=== PATIENT | female | born 1950 | race American Indian/Alaskan Native ===

== ENCOUNTER 2016-09-14 20:42 | Emergency (ER) | payer MEDICARE ==
[2016-09-14 21:22] VITALS: BP 149/88
[2016-09-14 22:18] LABS: Basophils % (Auto) 0.7 % (0.0-1.8); Eosinophils % (Auto) 0.7 % (0.0-4.3); Hematocrit 31.3 % (30.3-42.9); Hemoglobin 10.6 gm/dl (10.1-14.3); Mean Corpuscular HGB Conc 34 % (30-34); Mean Corpuscular Hemoglobin 31 pg (28-32); Mean Corpuscular Volume 92 fl (79-97); Platelet Count 225 K/mm3 (140-440); Red Blood Count 3.42 M/mm3 (3.65-5.03); Red Cell Distribution Width 15.8 % (13.2-15.2); White Blood Count 5.5 K/mm3 (4.5-11.0)
[2016-09-14 22:34] LABS: Anion Gap 17 mmol/L; BUN/Creatinine Ratio 21.05; Blood Urea Nitrogen 40 mg/dL (7-17); Calcium 9.7 mg/dL (8.4-10.2); Carbon Dioxide 25 mmol/L (22-30); Chloride 104.1 mmol/L (98-107); Glucose 176 mg/dL (65-100); Sodium 140 mmol/L (137-145)
[2016-09-14 22:47] LABS: Potassium 6.4 mmol/L (3.6-5.0)
== END 2016-09-14 23:20 | disposition left against medical advice (07) ==
LOC: ED 20:42
DX: T78.40XA Allergy, unspecified, initial encounter (principal); R20.0 Anesthesia of skin; X58.XXXA Exposure to other specified factors, initial encounter; Z53.21 Procedure and treatment not carried out due to patient leaving prior to being seen by health care provider
CPT/HCPCS: 36415; 80048; 84484; 85025; 93005; 93010